=== PATIENT | male | born 1965 | race Caucasian/White ===

== ENCOUNTER 2018-09-05 18:27 | Emergency (ER) | payer OTHER ==
[2018-09-05 18:36] VITALS: BMI 24.3
--- NOTE | 2018-09-05 19:50 | PDOC ---
History of Present Illness - General Chief Complaint: Pain Stated Complaint: pain under r rib cage Time Seen by Provider: 09/05/18 19:50 - History of Present Illness Initial Comments: 52 yo M with PMH of GERD, ruptured esophagus, kidney stones presenting with RUQ pain x 2 weeks. Patient states that his pain has worsened over time, now rated 7 /10. He describes it as a "pressure" and it radiated to his epigastrium and inferiorly. Patient has had pain in this area before and has even been seen in this emergency department for it, but has never been told that something was wrong with his gallbladder. He reports that before the pain was constant as it is now, it intermittently got worse with eating. May have had some nausea in the past two weeks, but no vomiting. Not nauseous right now. History of two hernia surgeries in 2006 and in the . No fevers, chills, chest pain, or shortness of breath. Past History - Past Medical History Allergies/Adverse Reactions: Allergies Allergy/AdvReac Type Severity Reaction Status Date / Time No Known Allergies Allergy Verified 09/05/18 18:36 Home Medications: Ambulatory Orders Oxycodone HCl/Acetaminophen [Percocet 5-325 mg Tablet -] 1 tab PO BID 07/20/14 Famotidine [Heartburn Prevention] 20 mg PO BID #30 tablet 09/05/18 COPD: No GI Disorders: Yes (diverticulosis) Other medical history: back problems - Surgical History Appendectomy: Yes GI Surgery: No (colonoscopy) - Immunization History Td Vaccination: Yes Immunization Up to Date: Yes - Suicide/Smoking/Psychosocial Hx Smoking Status: No Smoking History: Never smoked Years of Tobacco Use: 0 Number of Cigarettes Smoked Daily: 0 Cigars Per Day: 0 Hx Alcohol Use: Yes Substance Use Type: None Hx Substance Use Treatment: No Review of Systems - Review of Systems Comments:: Constitutional: no fever, no chills HEENT: no throat pain, no dysphagia Cardiovascular: no chest pain, no palpitations Respiratory: no cough, no shortness of breath Gastrointestinal: +abdominal pain, no diarrhea Genitourinary: no dysuria, no frequency Musculoskeletal: no myalgia, no arthralgia Skin: no rash, no itching Neurologic: no headache, no dizziness *Physical Exam - Vital Signs Last Vital Signs Temp Pulse Resp BP Pulse Ox 97.9 F 69 18 142/89 99 09/05/18 18:33 09/05/18 18:33 09/05/18 18:33 09/05/18 18:33 09/05/18 18:33 - Physical Exam Comments: General: Awake, alert, and fully oriented, in no acute distress Head: No signs of trauma Eyes: EOMI, sclera anicteric ENT: Moist mucus membranes Neck: Normal ROM, supple Lungs: Lungs clear, Normal breath sounds Cardio: Regular rhythm, S1 and S2 present Abdomen: Tender to palpation in RUQ. Soft, nondistended. No guarding, no rebound , no masses Extremities: Normal range of motion, Distal pulses present SKIN: Warm, Dry, normal turgor Neurologic: Cranial nerves II through XII grossly intact. Normal speech Moderate Sedation - Procedure Monitoring Vital Signs: Procedure Monitoring Vital Signs Temperature 97.9 F 09/05/18 18:33 Pulse Rate 69 09/05/18 18:33 Respiratory Rate 18 09/05/18 18:33 Blood Pressure 142/89 09/05/18 18:33 O2 Sat by Pulse Oximetry (%) 99 09/05/18 18:33 ED Treatment Course - LABORATORY CBC & Chemistry Diagram: 09/05/18 20:55 09/05/18 20:55 Medical Decision Making - Medical Decision Making Patient not in Vertical area. Likely in Ultrasound. 09/05/18 19:54 52 yo M with PMH of GERD, ruptured esophagus, kidney stones presenting with RUQ pain x 2 weeks. DDX includes but not limited to cholecystitis, gastritis, pancreatitis, hepatitis, biliary colic RUQ ultrasound: "unremarkable right upper quadrant abdominal sonogram" CBC, CMP, Lipase pending 09/05/18 21:16 Labs unremarkable, no anemia or leukocytosis, normal lipase Plan to discharge with famotidine for possible dyspepsia and GI follow-up. Patient amenable to plan 09/05/18 22:30 *DC/Admit/Observation/Transfer Diagnosis at time of Disposition: Right upper quadrant pain - Discharge Dispostion Disposition: HOME Condition at time of disposition: Stable - Prescriptions Prescriptions: Famotidine [Heartburn Prevention] 20 mg PO BID #30 tablet - Referrals - Patient Instructions Printed Discharge Instructions: DI for Abdominal Pain-Adult Additional Instructions: You came into the ED for abdominal pain. Labs and ultrasound imaging were normal. Follow-up with your primary care doctor this week to discuss this ED visit and to further evaluate your symptoms. Follow-up with your GI doctor as well. Prescription sent to your pharmacy. Immediate medical attention is required if you have: you develop worsening pain , high fevers, persistent nausea, vomiting, or any new or concerning symptoms. If you think you are having an emergency, call for emergency medical services or present to the emergency department right away. - Post Discharge Activity
--- NOTE | 2018-09-05 20:40 | PDOC ---
Attending Attestation - HPI HPI: 09/05/18 21:38 The patient is a 55 year old male with past medical history significant for GERD , Kidney stones presents to the emergency department with RUQ pain. The patient presents with 2 weeks of constant RUQ pain, thats pressure in quality. The patient reports the pain is 7/10 in severity, that radiates to the epigastric region. The patient reports the pain is worse with eating, with no known factor that alleviates the pain. The patient reports associated symptoms of nausea, denies vomiting. The patient reports he had an ENdoscopy in December and prior colonoscopy that was unremarkable. Denies fever, chills, chest pain, SOB. Allergies: NKDA Social history: Alcohol use, no tobacco or drug use reported. FH: Breast CA (mother). - Physicial Exam PE: 09/05/18 22:26 Vitals: Triage Vital signs reviewed General Appearance: no acute distress, well nourished well developed, Neck: Supple;No Nuchal rigidity Chest Wall: Nontender Cardiac: Regular rate and rhythm, no murmurs, no rubs, no gallops, Lungs: Clear to auscultation bilateral, good air movement bilaterally, Abdomen: +Mild reproducible RUQ pain. Soft, nondistended. Extremities: Full range of motion to all extremities, no cyanosis, clubbing, or edema Skin: Warm and dry, no rashes or lesions, no petechiae. - Medical Decision Making 09/05/18 21:39 U/S reading: EXAM: Limited right upper quadrant abdominal sonogram. 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 09/05/18 21:41 Documentation prepared by Jia Coates, acting as biomedical manager for Chuy Shipman MD. <Jia Coates - Last Filed: 09/05/18 22:26> - Resident Resident Name: Aura Gutiérrez - ED Attending Attestation I have performed the following: I have examined & evaluated the patient, The case was reviewed & discussed with the resident, I agree w/resident's findings & plan, Exceptions are as noted - Medical Decision Making Well-appearing no apparent distress chronic greater than 1 month history of abdominal discomfort patient has had these symptoms in the past area no chest pain or shortness of breath no exertional symptoms symptoms are exacerbated with patient bends over No fever no white count no acute findings on ultrasound Differential diagnosis includes muscle skeletal discomfort dyspepsia Gas, constipation Low suspicion for cardiac etiology Patient will follow up with his primary care provider has an appointment on will return to ED for any severe worsening symptoms or for any concerns. Find his, need for follow-up and strict return instructions discussed with patient. <Chuy Shipman - Last Filed: 09/05/18 22:43>
[2018-09-05 21:07] LABS: HEMATOCRIT 41.9 % (35.4-49); HEMOGLOBIN 14.6 GM/dL (11.7-16.9); MCH 30.7 pg (25.7-33.7); MCHC 34.9 g/dl (32.0-35.9); MEAN CELL VOLUME 87.8 fl (80-96); MEAN PLT VOLUME 8.8 fl (7.5-11.1); PLATELET COUNT 232 K/MM3 (134-434); RBC 4.78 M/mm3 (4.00-5.60); RDW 12.6 % (11.9-15.9); WHITE BLOOD COUNT 7.6 K/mm3 (4.0-10.0)
[2018-09-05 21:40] LABS: ALBUMIN 4.1 g/dl (3.4-5.0); ALK PHOS 83 U/L (45-117); ANION GAP 5 MMOL/L (8-16); BILIRUBIN,TOTAL 0.8 mg/dL (0.2-1); BLOOD UREA NITROGEN 17 mg/dL (7-18); CALCIUM 8.9 mg/dL (8.5-10.1); CHLORIDE 103 mmol/L (98-107); CO2 30 mmol/L (21-32); CREATININE 0.7 mg/dL (0.55-1.3); GLUCOSE,RANDOM 104 mg/dL (74-106); POTASSIUM 4.3 mmol/L (3.5-5.1); SGOT/AST 28 U/L (15-37); SGPT/ALT 34 U/L (13-61); SODIUM 138 mmol/L (136-145); TOT PROT 7.6 g/dl (6.4-8.2)
[2018-09-05 22:50] VITALS: BP 128/72; PULSE 78; TEMP 98.2
== END 2018-09-05 22:50 | disposition home or self-care (01) ==
LOC: JERFT 18:27 → JER 18:27
DX: R10.11 Right upper quadrant pain (principal); K21.9 Gastro-esophageal reflux disease without esophagitis; Z87.442 Personal history of urinary calculi; Z87.19 Personal history of other diseases of the digestive system
CPT/HCPCS: 36415; 71046-TC-FY; 76705-TC; 80053; 83690; 85027; 99282-25

== ENCOUNTER 2020-11-12 09:25 | Emergency (ER) | payer SELFPAY ==
[2020-11-12 09:30] VITALS: BMI 24.7
[2020-11-12] MEDS ORDERED: SODIUM CHLORIDE 1,000 ML IV STA (09:58)
[2020-11-12] MEDS ORDERED: ACETAMINOPHEN 1000 MG/100 ML VIAL (NON FORMULARY) IVPB ONE (09:58)
[2020-11-12] MEDS ORDERED: ACETAMINOPHEN INJECTION 100 ML IVPB ONE (10:04)
[2020-11-12 10:41] LABS: URINE APPEARANCE CLEAR; URINE BILIRUBIN NEGATIVE (NEGATIVE); URINE COLOR YELLOW; URINE GLUCOSE (UA) NEGATIVE (NEGATIVE); URINE KETONE NEGATIVE (NEGATIVE); URINE LEUK ESTERASE NEGATIVE (NEGATIVE); URINE NITRITE NEGATIVE (NEGATIVE); URINE PROTEIN NEGATIVE (NEGATIVE); URINE UROBILINOGEN 0.2 mg/dL (0.2-1.0)
[2020-11-12 10:43] LABS: BASO % 0.7 % (0-2.0); EOS % 3.1 % (0-4.5); HEMATOCRIT 45.6 % (35.4-49); HEMOGLOBIN 15.6 GM/dL (11.7-16.9); MCH 29.8 pg (25.7-33.7); MCHC 34.1 g/dl (32.0-35.9); MEAN CELL VOLUME 87.3 fl (80-96); NEUT % 57.2 % (42.8-82.8); PLATELET COUNT 246 K/MM3 (134-434); RBC 5.22 M/mm3 (4.00-5.60); RDW 13.6 % (11.9-15.9); WHITE BLOOD COUNT 5.4 K/mm3 (4.0-10.0)
[2020-11-12 10:49] LABS: INR 1.06 (0.83-1.09); PROTHROMBIN TIME (PATIENT) 12.8 SEC (9.7-13.0)
[2020-11-12 11:03] LABS: CHLORIDE 103 mmol/L (98-107); SODIUM 139 mmol/L (136-145)
[2020-11-12 11:05] LABS: CALCIUM 9.6 mg/dL (8.5-10.1)
[2020-11-12 11:06] LABS: ALBUMIN 3.9 g/dl (3.4-5.0); ANION GAP 3 MMOL/L (8-16); BLOOD UREA NITROGEN 13.5 mg/dL (7-18); CO2 33 mmol/L (21-32); GLUCOSE,RANDOM 90 mg/dL (74-106); LIPASE 118 U/L (73-393)
[2020-11-12 11:08] LABS: SGPT/ALT 30 U/L (13-61)
[2020-11-12 11:09] LABS: CREATININE 0.8 mg/dL (0.55-1.3); SGOT/AST 22 U/L (15-37)
[2020-11-12 11:10] LABS: BILIRUBIN,TOTAL 1.1 mg/dL (0.2-1); TOT PROT 8.4 g/dl (6.4-8.2)
[2020-11-12 11:11] LABS: ALK PHOS 89 U/L (45-117)
[2020-11-12 11:38] VITALS: TEMP 97.8
[2020-11-12 15:02] VITALS: BP 128/80; PULSE 76
== END 2020-11-12 15:02 | disposition home or self-care (01) ==
LOC: JER 09:25
PROC: 3E0333Z Introduction of Anti-inflammatory into Peripheral Vein, Percutaneous Approach (ICD-10-PCS; principal; 2020-11-12)
PROC: 3E0337Z Introduction of Electrolytic and Water Balance Substance into Peripheral Vein, Percutaneous Approach (ICD-10-PCS; 2020-11-12)
DX: R10.11 Right upper quadrant pain (principal)
CPT/HCPCS: 36415; 71046-TC-FY; 74177-TC; 76705-TC; 80053; 81003; 82550; 83690; 84484; 85025; 85610; 87086; 93005; 93010; 99285-25; J0131; Q9967

== ENCOUNTER 2021-06-16 15:54 | Emergency (ER) | payer OTHER ==
[2021-06-16 16:12] VITALS: BP 121/78; PULSE 76; TEMP 97.8; BMI 35.4
[2021-06-16] MEDS ORDERED: DEXAMETHASONE SOD PHOSPHATE 10 MG/1 ML VIAL IM ONE (16:55)
[2021-06-16] MEDS: ALBUTEROL SO4 2.5/IPRATROPIUM 0.5 INH SOL 3 ML VIAL.NEB. NEB SCH ×4 (17:00→17:43)
[2021-06-16] MEDS ORDERED: DEXAMETHASONE SOD PHOSPHATE 10 MG/1 ML VIAL ONE (17:01)
[2021-06-16] MEDS ORDERED: AZITHROMYCIN 500 MG TABLET PO ONE (17:41)
[2021-06-16] MEDS ORDERED: AZITHROMYCIN 250 MG TABLET ONE (17:48)
== END 2021-06-16 18:54 | disposition home or self-care (01) ==
LOC: JCOVINFU 15:54
PROC: 3E023NZ Introduction of Analgesics, Hypnotics, Sedatives into Muscle, Percutaneous Approach (ICD-10-PCS; principal; 2021-06-16)
PROC: 3E0F7GC Introduction of Other Therapeutic Substance into Respiratory Tract, Via Natural or Artificial Opening (ICD-10-PCS; 2021-06-16)
DX: J40 Bronchitis, not specified as acute or chronic (principal)
CPT/HCPCS: 71046-TC-FY; 87804; 87807; 93005; 93010; 99284-25; C9803; J1100; U0003; U0005

== ENCOUNTER 2023-07-25 14:39 | Emergency (ER) | payer OTHER ==
[2023-07-25 15:16] VITALS: BMI 22.8
[2023-07-25 17:18] LABS: HEMATOCRIT 46.1 % (35.4-49); HEMOGLOBIN 15.3 GM/dL (11.7-16.9); MCHC 33.3 g/dl (32.0-35.9); MEAN CELL VOLUME 87.2 fl (80-96); PLATELET COUNT 310 10^3/uL (134-434); RBC 5.29 M/mm3 (4.00-5.60); RDW 12.8 % (11.9-15.9); WHITE BLOOD COUNT 9.7 K/mm3 (4.0-10.0)
[2023-07-25 17:35] LABS: POTASSIUM 3.9 mmol/L (3.5-5.1)
[2023-07-25 17:37] LABS: CALCIUM 9.4 mg/dL (8.5-10.1)
[2023-07-25 17:38] LABS: BLOOD UREA NITROGEN 8.8 mg/dL (7-18)
[2023-07-25 17:41] LABS: CREATININE 0.6 mg/dL (0.55-1.3)
[2023-07-25 17:42] LABS: TOT PROT 7.6 g/dl (6.4-8.2)
[2023-07-25 17:43] LABS: BILIRUBIN,TOTAL 1.5 mg/dL (0.2-1)
[2023-07-25] MEDS ORDERED: BUPRENORPHINE/NALOXONE 2 MG/0.5 MG FILM PACKET SL ONE (17:58)
[2023-07-25] MEDS ORDERED: BUPRENORPHINE/NALOXONE 2 MG/0.5 MG FILM PACKET ONE (18:27)
[2023-07-25 18:30] LABS: BILIRUBIN,DIRECT 0.2 mg/dL (0.0-0.2)
[2023-07-25 19:16] VITALS: BP 137/85; PULSE 105; RESP 18; TEMP 98.8
== END 2023-07-25 19:53 | disposition home or self-care (01) ==
LOC: JER 14:39
DX: F11.10 Opioid abuse, uncomplicated (principal); R00.2 Palpitations; M54.2 Cervicalgia; M54.6 Pain in thoracic spine; R07.9 Chest pain, unspecified
CPT/HCPCS: 36415; 71046-TC-FY; 80053; 82248; 84484; 85027; 93005; 93010; 99285-25